=== PATIENT | male | born 1975 | race Caucasian/White ===

== ENCOUNTER 2020-02-22 14:45 | Inpatient (IN) | payer MEDICAID ==
[~2020-02-22] VITALS: Ht 172.7 cm; Wt 89.8 kg
--- NOTE | 2020-02-22 14:55 | NUR ---
PT BIB SELF C/O EPIGASTRIC PAIN SINCE LAST NIGHT, PT IS AAOX3, NOT IN RESPIRATORY DISTRESS, HOOKED TO GENERATION MANAGER, KEPT RESTED AND COMFORTABLE, WILL CONTINUE TO MONITOR.
--- NOTE | 2020-02-22 15:20 | NUR ---
IV LINE ESTABLISHED BLOOD DRAWN AND SENT TO LAB.
--- NOTE | 2020-02-22 15:25 | NUR ---
SISTER ROCKY LEFT #[phone]
[2020-02-22 15:29] LABS: BASOPHILS % (AUTO) 0.2 % (0.0-2.0); HEMATOCRIT 52 % (39-51); HEMOGLOBIN 17.5 g/dL (13.5-17.5); LYMPHOCYTES # (AUTO) 0.7 /CMM (0.8-4.8); LYMPHOCYTES % (AUTO) 5.5 % (20.0-44.0); MEAN CORPUSCULAR HGB CONC 34 g/dl (31.0-36.0); MEAN CORPUSCULAR VOLUME 89 fL (80-96); MONOCYTES # (AUTO) 0.4 /CMM (0.1-1.30); MONOCYTES % (AUTO) 3.3 % (2.0-12.0); NEUTROPHILS # (AUTO) 11.4 /CMM (1.8-8.9); PLATELET COUNT (AUTO) 302 /CMM (150-450); RED BLOOD CELL COUNT(AUTO) 5.82 MIL/uL (4.5-6.0); WHITE BLOOD COUNT (AUTO) 12.5 K/uL (4.3-11.0)
[2020-02-22] MEDS ORDERED: ONDANSETRON HCL/PF 4 MG/2 ML VIAL ONE (15:38)
[2020-02-22] MEDS ORDERED: MORPHINE SULFATE INJ 2 MG/ML DISP.SYRIN ONE (15:39)
[2020-02-22 15:41] LABS: CALCIUM, SERUM 9.6 mg/dL (8.5-10.1); CREATININE 1.1 mg/dL (0.6-1.3); POTASSIUM 4.1 mmol/L (3.5-5.1)
[2020-02-22] MEDS ORDERED: PANTOPRAZOLE 40 MG VIAL ONE (15:47)
[2020-02-22] MEDS ORDERED: KETOROLAC TROMETHAMINE 15 MG/ML VIAL ONE (15:47)
[2020-02-22 15:49] LABS: ALBUMIN 4.4 g/dL (3.4-5.0); BILIRUBIN,DIRECT 0.1 mg/dL (0.0-0.2); BILIRUBIN,TOTAL 0.5 mg/dL (0.2-1.0); TOTAL PROTEIN, SERUM 8.2 g/dL (6.4-8.2)
--- NOTE | 2020-02-22 15:50 | NUR ---
PT IS WHEELED TO CT SCAN VIA [facility].
[2020-02-22] MEDS ORDERED: ONDANSETRON HCL/PF - ER 4 MG/2 ML VIAL IV ONE ×2 (16:00→18:30)
[2020-02-22] MEDS ORDERED: MORPHINE SULFATE INJ 2 MG/ML DISP.SYRIN IV ONE (16:00)
[2020-02-22] MEDS ORDERED: KETOROLAC TROMETHAMINE INJ 30 MG/ML VIAL IV ONE (16:00)
[2020-02-22] MEDS ORDERED: PANTOPRAZOLE 40 MG VIAL IV ONE (16:00)
--- NOTE | 2020-02-22 16:25 | NUR ---
TECH AT BEDSIDE FOR US.
[2020-02-22] MEDS ORDERED: HYDROMORPHONE INJ 0.5 MG/0.5 ML SYRINGE IV ONE (18:00)
[2020-02-22] MEDS ORDERED: HYDROMORPHONE 1 MG/1 ML DISP.SYRIN ONE (18:00)
[2020-02-22] MEDS ORDERED: IV NS 0.9% 1,000 ML BAG IV ONE (18:30)
[2020-02-22] MEDS ORDERED: IV NS 0.9% 1,000 ML IV ONE (18:30)
--- NOTE | 2020-02-22 19:13 | NUR ---
REPORT GIVEN TO OZZIE HARRIS FOR TRISTEN.
--- NOTE | 2020-02-22 20:14 | NUR ---
REPORT GIVEN TO LUÍS HORNE FOR TRISTEN.
--- NOTE | 2020-02-22 20:15 | NUR ---
MS RN NOTES RECEIVED REPORT FROM OZZIE HARRIS; AWAITING PATIENT ARRIVAL TO UNIT
[2020-02-22 20:22] VITALS: BP 157/101
--- NOTE | 2020-02-22 20:22 | NUR ---
MS RN ADMITTING NOTES PATIENT ARRIVED ON UNIT VIA GURNEY, ACCOMPANIED BY OZZIE HARRIS; PATIENT A/OX4; BREATHING EVEN AND UNLABORED; TOLERATING ROOM AIR WELL; NO SOB NOTED; PATIENT REPORTED 9/10 ABDOMINAL PAIN AND IS REFUSING SKIN ASSESSMENT D/T PAIN; PER ER STAFF, SKIN INTACT; PATIENT REPORTED NO WOUNDS WELL; L AC #18 INTACT AND PATENT, FLUSHING WELL; NO S/S OF REDNESS OR INFILTRATION NOTED; PATIENT ORIENTED TO UNIT AND TO STAFF; SAFETY PRECAUTIONS IMPLEMENTED; BED LOCKED IN LOW POSITION; SIDE RAILS X2; CALL LIGHT WITHIN REACH; WILL CONT PLAN OF CARE AND CONT TO MONITOR; AWAITING MD ORDERS; WILL F/U
--- NOTE | 2020-02-22 20:37 | NUR ---
PATIENT TAKEN UPSTAIRS TO ADMITTED ROOM.
--- NOTE | 2020-02-22 20:45 | NUR ---
MS RN NOTES PATIENT COMPLAINT OF PAIN; RATES PAIN /; BP: 157/101 HR: 71 MORPHINE IV PUSH GIVEN PER MD ORDER; WILL CONT TO MONITOR AND ASSESS
[2020-02-22 21:00] VITALS: BP 157/101
[2020-02-22] MEDS ORDERED: MORPHINE SULFATE INJ 2 MG/ML DISP.SYRIN IV PRN (21:00)
[2020-02-22] MEDS ORDERED: ONDANSETRON HCL/PF 4 MG/2 ML VIAL IVP PRN (21:00)
[2020-02-22] MEDS ORDERED: Z GUARD REMEDY 2 OZ OINT TP PRN (21:00)
[2020-02-22] MEDS ORDERED: MAG HYDROX/AL HYDROX/SIMETH 30 ML UDC PO PRN (21:00)
[2020-02-22] MEDS ORDERED: MAGNESIUM HYDROXIDE 30 ML UDC PO PRN (21:00)
--- NOTE | 2020-02-22 21:05 | NUR ---
MS RN NOTES SPOKE WITH URGENT CARE NURSE PRACTITIONER FOAM DISPENSER JULIE; SHIRIN IS WORKING ON VERIFYING MEDICATION; AWAITING VERIFICATION PRIOR TO ADMINISTRATION OF MEDS
[2020-02-22] MEDS: IV NS 0.9% 1,000 ML IV SCH (21:37)
--- NOTE | 2020-02-22 22:46 | NUR ---
MS RN NOTES PATIENT REPORTED MORPHINE HELPED DROP PAIN LEVEL DOWN TO A 6-7 FROM 06/01; PATIENT NOW REPORTS PAIN OF 07/01; BP: 176/97 PULSE: 98 WILL RE-ASSESS; PATIENT REQUESTED NORCO AND ICE CHIPS; NORCO ADMINISTERED PER MD; WILL CONT TO MONITOR
[2020-02-22] MEDS: HYDROCODONE/APAP 5/325MG 1 EACH TABLET PO PRN (22:49)
--- NOTE | 2020-02-22 23:26 | NUR ---
MS RN NOTES PATIENT SLEEPING IN BED COMFORTABLY; EASILY AROUSABLE; REPORTS HE FEELS A BIT BETTER AND WOULD LIKE TO REST; PATIENT REPORTED HE WILL TRY TO MANAGE HIS PAIN; WILL CONT TO MONITOR;
--- NOTE | 2020-02-22 23:50 | NUR ---
MS RN NOTES PATIENT AWAKE AND IN DISCOMFORT; PATIENT REPORTING 9-10/10 PAIN SCALE; SPOKE WITH DR. GARCES REGARDING PATIENT; DR. GARCES WILL ASSESS; WILL CONT TO MONITOR
--- NOTE | 2020-02-23 | NUR ---
MS RN NOTES PER JENNIFER FULTON MORPHINE; DR. GARCES ORDERED DILAUDID 0.5MG IV PUSH; PATIENT CURRENTLY SLEEPING IN BED COMFORTABLY; WILL CONT TO MONITOR
[2020-02-23] MEDS ORDERED: HYDROMORPHONE INJ 0.5 MG/0.5 ML SYRINGE IV PRN (00:30)
[2020-02-23] MEDS: HYDROMORPHONE 1 MG/1 ML DISP.SYRIN IV PRN ×5 (01:56→22:53)
--- NOTE | 2020-02-23 01:56 | NUR ---
MS RN NOTES PATIENT REPORTING 10/10 ABDOMINAL PAIN; VITALS 163/94 P: 101; DILAUDID ADMINISTERED PER MD ORDER; WILL RE-ASSESS
--- NOTE | 2020-02-23 02:39 | NUR ---
MS RN NOTES PATIENT ASLEEP IN BED; RESTING IN BED COMFORTABLY; WAKES EASILY TO TOUCH; PATIENT REPORTED 6/10 PAIN; PATIENT AWARE PAIN MEDS NOT DUE AT THIS TIME; PATIENT WILL GO BACK TO BED; WILL CONT TO MONITOR
--- NOTE | 2020-02-23 04:27 | NUR ---
MS RN NOTES PATIENT RESTLESS AND IN PAIN; PATIENT REPORTS 10/10 ABDOMINAL PAIN; PATIENT SAYS THE PAIN GOES UP AND DOWN CONSTANTLY AND IT IS VERY UNCOMFORTABLE; WILL ADMINISTER NORCO PER MD ORDER; PATIENT VITALS: BP: 138/102, PULSE: 137, RR: 20; PATIENT REPORTS HE WANTS THE PAIN TO STOP AND TO BE ABLE TO JUST GO TO BED THE REST OF THE NIGHT; WILL CONT TO ASSESS AND MONITOR
[2020-02-23] MEDS: HYDROCODONE/APAP 5/325MG 1 EACH TABLET PO PRN ×2 (04:29→20:32)
--- NOTE | 2020-02-23 05:06 | NUR ---
MS RN NOTES PATIENT STILL IN DISTRESS, SAYS PAIN IS NOT GOING AWAY; PATIENT REPORTS HE IS BURPING A LOT; PATIENT INFORMED THAT BURPING IS GOOD, TO RELEASE TRAPPED AIR. PATIENT SAYS HE DOES NOT WANT TO MOVE IN BED D/T THE PAIN; HE ONLY CHANGES HIS POSITION IF ABLE TO TOLERATE PAIN; WILL INFORM DAY SHIFT REGARDING PAIN MANAGEMENT; MAALOX PRN GIVEN; PATIENT REQUESTED TO TRY SOMETHING TO HELP RELEASE MORE GAS; PAIN MANAGEMENT OF NOW, NOT ENTIRELY EFFECTIVE; WILL CONT TO MONITOR AND ASSESS
--- NOTE | 2020-02-23 06:04 | NUR ---
MS HORNE NOTES PATIENT REPORTING ABDOMINAL PAIN 07/01; 126/94, PULSE: 166; WILL ADMINISTER DILAUDID PER ORDER; WILL CONT TO MONITOR Addendum: 02/23/20 at 0642 by BRITTNEY JAMES RN WILL RECOMMEND TELE MONITORING FOR PATIENT; WILL ENDORSE ONCOMING SHIFT
--- NOTE | 2020-02-23 06:59 | NUR ---
MS RN CLOSING NOTES PATIENT RESTING IN BED, A/OX4; BREATHING EVEN AND UNLABORED; PATIENT TOLERATING ROOM AIR WELL; NO SOB NOTED; L AC #18 INTACT AND PATENT, INFUSING NS @ 100ML/HR; PATIENT TOLERATING IVF WELL; PATIENT STILL IN PAIN; WILL INFORM ONCOMING SHIFT REGARDING PAIN MANAGEMENT; ALL NEEDS RENDERED; SAFETY PRECAUTIONS IMPLEMENTED; BED LOCKED IN LOW POSITION; SIDE RAILS X2; CALL LIGHT WITHIN REACH; WILL ENDORSE TRISTEN TO ONCOMING SHIFT
[2020-02-23 07:03] LABS: BASOPHILS % (AUTO) 0.2 % (0.0-2.0); HEMATOCRIT 50 % (39-51); HEMOGLOBIN 17.2 g/dL (13.5-17.5); LYMPHOCYTES # (AUTO) 0.7 /CMM (0.8-4.8); LYMPHOCYTES % (AUTO) 5.4 % (20.0-44.0); MEAN CORPUSCULAR HGB CONC 35 g/dl (31.0-36.0); MEAN CORPUSCULAR VOLUME 88 fL (80-96); MONOCYTES # (AUTO) 0.9 /CMM (0.1-1.30); MONOCYTES % (AUTO) 7.7 % (2.0-12.0); NEUTROPHILS # (AUTO) 10.5 /CMM (1.8-8.9); NEUTROPHILS % (AUTO) 86.7 % (43.0-81.0); PLATELET COUNT (AUTO) 291 /CMM (150-450); RED BLOOD CELL COUNT(AUTO) 5.64 MIL/uL (4.5-6.0); WHITE BLOOD COUNT (AUTO) 12.2 K/uL (4.3-11.0)
[2020-02-23] MEDS: IV NS 0.9% 1,000 ML IV SCH (07:21)
--- NOTE | 2020-02-23 07:30 | NUR ---
MS/RN NOTES Patient resting in bed, A&O x 4. No SOB noted, breathing even and non-labored. No cardiac distress noted. Patient reports no pain/discomfort at this time. IV access noted on the left AC, 18 gauge infusing NS at 100ml/hr. Sensations from all peripheral extremities intact. Fall precautions maintained. Will continue with current medical management.
[2020-02-23 07:31] LABS: ALBUMIN 3.6 g/dL (3.4-5.0); BILIRUBIN,DIRECT 0.1 mg/dL (0.0-0.2); BILIRUBIN,TOTAL 0.6 mg/dL (0.2-1.0); CALCIUM, SERUM 8.5 mg/dL (8.5-10.1); CREATININE 0.9 mg/dL (0.6-1.3); MAGNESIUM 1.8 mg/dL (1.8-2.4); PHOSPHORUS 3.1 mg/dL (2.5-4.9); POTASSIUM 3.8 mmol/L (3.5-5.1); TOTAL PROTEIN, SERUM 7.2 g/dL (6.4-8.2)
[2020-02-23] MEDS: PANTOPRAZOLE 40 MG VIAL IV SCH (08:06)
[2020-02-23 08:47] VITALS: BP 146/106
--- NOTE | 2020-02-23 11:00 | NUR ---
MS/RN NOTES Spoke with daughter, Eneida [phone], about patient's history. She reveals that patient never goes to the doctor, is non-compliant, and has hx of heavy alcohol use. She states that patient drinks liquor and beer every day.
[2020-02-23 16:53] VITALS: BP 139/96
--- NOTE | 2020-02-23 18:14 | NUR ---
312-1 MS/RN CLOSING NOTES Patient resting in bed, A&O x 4. VSS, afebrile, no SOB noted. Patient reports pain and discomfort on the abdomen, but last dilaudid was given at 1407. Breathing even and non-labored. No cardiac distress noted. IV access noted on the left AC, 18 gauge infusing NS at 100ml/hr. Sensations from all peripheral extremities intact. Fall precautions maintained. Will endorse to the oncoming scratch brusher nurse.
--- NOTE | 2020-02-23 19:30 | NUR ---
MS RN OPENING NOTES PATIENT SLEEPING IN BED, EASY TO AWAKEN. A/OX4. STABLE ON RA. NO S/S OF ACUTE RESPIRATORY DISTRESS; BREATHING IS EVEN AND UNLABORED. PATIENT C/O OF ABDOMINAL PAIN; PER DAY SHIFT RECEIVED PRN DILAUDID AT 1845. IV PRESENT ON LEFT AC, SIZE 18, INTACT & PATENT WITH NS RUNNING AT 100ML/HR. SAFETY MEASURES IN PLACE AND PATIENT'S NEEDS MET. BED LOCKED, SIDE RAILS X2, CALL LIGHT WITHIN REACH. WILL CONTINUE TO MONITOR.
[2020-02-23 20:00] VITALS: BP 139/89
[2020-02-23] MEDS: IV NS 0.9% 1,000 ML IV PRN (23:30)
[2020-02-24] MEDS: HYDROCODONE/APAP 5/325MG 1 EACH TABLET PO PRN ×6 (01:21→23:49)
[2020-02-24] MEDS: HYDROMORPHONE 1 MG/1 ML DISP.SYRIN IV PRN ×5 (03:14→21:02)
[2020-02-24 06:54] LABS: BASOPHILS % (AUTO) 0.3 % (0.0-2.0); HEMATOCRIT 48 % (39-51); HEMOGLOBIN 16.3 g/dL (13.5-17.5); LYMPHOCYTES # (AUTO) 1.3 /CMM (0.8-4.8); LYMPHOCYTES % (AUTO) 10.3 % (20.0-44.0); MEAN CORPUSCULAR HGB CONC 34 g/dl (31.0-36.0); MEAN CORPUSCULAR VOLUME 90 fL (80-96); MONOCYTES # (AUTO) 1.1 /CMM (0.1-1.30); MONOCYTES % (AUTO) 8.4 % (2.0-12.0); NEUTROPHILS # (AUTO) 10.4 /CMM (1.8-8.9); PLATELET COUNT (AUTO) 237 /CMM (150-450); RED BLOOD CELL COUNT(AUTO) 5.35 MIL/uL (4.5-6.0); WHITE BLOOD COUNT (AUTO) 12.9 K/uL (4.3-11.0)
[2020-02-24 07:07] LABS: ALBUMIN 2.9 g/dL (3.4-5.0); BILIRUBIN,DIRECT 0.2 mg/dL (0.0-0.2); BILIRUBIN,TOTAL 0.9 mg/dL (0.2-1.0); CALCIUM, SERUM 8.1 mg/dL (8.5-10.1); MAGNESIUM 1.9 mg/dL (1.8-2.4); POTASSIUM 3.8 mmol/L (3.5-5.1); TOTAL PROTEIN, SERUM 6.4 g/dL (6.4-8.2)
--- NOTE | 2020-02-24 07:30 | NUR ---
MS/RN NOTES Patient resting in bed, A&O x 4. Patient reports no pain/discomfort at this time. Requested ice packs for abdominal pain relief. No SOB noted, breathing even and non-labored. No cardiac distress noted. IV access noted on the left AC, 18 gauge infusing NS at 100ml/hr. Sensations from all peripheral extremities intact. Fall precautions maintained. Will continue with current medical management.
--- NOTE | 2020-02-24 07:46 | NUR ---
MS RN CLOSING NOTES PATIENT SLEEPING, EASY TO AWAKEN. A/OX4. STABLE ON RA. NO S/S OF ACUTE RESPIRATORY DISTRESS; BREATHING IS EVEN AND UNLABORED. NO C/O PAIN AT THIS TIME. IV PRESENT ON LEFT AC, SIZE 18, INTACT & PATENT WITH NS RUNNING AT 100ML/HR. SAFETY MEASURES IN PLACE AND PATIENT'S NEEDS MET. BED LOCKED, SIDE RAILS X2, CALL LIGHT WITHIN REACH. WILL ENDORSE TO DAY SHIFT NURSE PLAN OF CARE.
[2020-02-24 08:00] VITALS: BP 146/89
[2020-02-24] MEDS: PANTOPRAZOLE 40 MG VIAL IV SCH (08:03)
[2020-02-24] MEDS: IV NS 0.9% 1,000 ML IV PRN ×2 (12:03→22:09)
[2020-02-24] MEDS ORDERED: K PHOS NEUTRAL 250 MG TABLET PO ONE (13:30)
[2020-02-24 16:00] VITALS: BP 158/96
--- NOTE | 2020-02-24 18:51 | NUR ---
MS/RN CLOSING NOTES Patient resting in bed, A&O x 4. VSS, afebrile, no SOB noted. Patient reports pain and discomfort on the abdomen, but last dilaudid was given at 1703. Breathing even and non-labored. No cardiac distress noted. IV access noted on the left AC, 18 gauge infusing NS at 100ml/hr. Sensations from all peripheral extremities intact. Fall precautions maintained. Will endorse to the oncoming weight shifter nurse.
[2020-02-24 19:30] VITALS: BP 149/99
--- NOTE | 2020-02-24 19:30 | NUR ---
MS RN NOTES PATIENT IN BED, RESTING, ALERT AND ORIENTED X 4. BREATHING EVEN AND UNLABORED ON ROOM AIR. SHOWS NO SIGNS OF ACUTE RESPIRATORY DISTRESS, NO ACUTE PAIN. IV ON LAC 18 G RUNNING NS AT 100ML/HR. SHOWS NO SIGNS OF INFILTRATION, NO REDNESS. SAFETY PRECAUTIONS IN PLACE. BED IN LOWEST POSITION, LOCKED, AND CALL LIGHT KEPT WITHIN REACH. WILL CONTINUE TO MONITOR.
--- NOTE | 2020-02-24 19:49 | NUR ---
MS RN NOTES PATIENT COMPLAINING OF PAIN 07/01. GIVEN NORCO PRN AT 1949. WILL CONTINUE TO MONITOR.
[2020-02-24 20:00] VITALS: BP 149/99
--- NOTE | 2020-02-24 21:02 | NUR ---
MS RN NOTES PATIENT COMPLAINING OF PAIN 10/10. GIVEN PRN DILAUDID AT 2102. WILL CONTINUE TO MONITOR.
[2020-02-24] MEDS: ACETAMINOPHEN 325 MG TABLET PO PRN (22:22)
--- NOTE | 2020-02-24 22:22 | NUR ---
MS RN NOTES PATIENT RUNNING LOW GRADE FEVER 99.8. ACCORDING TO PHARMACY IT WILL BE SAFE TO GIVE TYLENOL 650MG ALONG WITH ALL THE PRIOR DOSES OF NORCO THAT WAS GIVEN. GIVEN NORCO 2222. WILL CONTINUE TO MONITOR AND STARTED COOLING MEASURES.
--- NOTE | 2020-02-24 23:49 | NUR ---
MS RN NOTES PATIENT COMPLAINING OF PAIN 05/01. GIVEN NORCO PRN AT 2349. WILL CONTINUE TO MONITOR.
[2020-02-25] MEDS: HYDROMORPHONE 1 MG/1 ML DISP.SYRIN IV PRN ×5 (01:03→20:04)
--- NOTE | 2020-02-25 01:03 | NUR ---
MS RN NOTES PATIENT COMPLAINING OF PAIN 06/01. GIVEN PRN DILAUDID AT 0103. WILL CONTINUE TO MONITOR.
--- NOTE | 2020-02-25 05:56 | NUR ---
MS RN NOTES PATIENT COMPLAINING OF PAIN 06/01. GIVEN PRN DILAUDID AT 0556. WILL CONTINUE TO MONITOR.
--- NOTE | 2020-02-25 06:40 | NUR ---
MS RN NOTES PATIENT IN BED, SLEEPING , ALERT AND ORIENTED X 4. BREATHING EVEN AND UNLABORED ON ROOM AIR. SHOWS NO SIGNS OF ACUTE RESPIRATORY DISTRESS, NO ACUTE PAIN. IV ON LAC 18 G RUNNING NS AT 100ML/HR. SHOWS NO SIGNS OF INFILTRATION, NO REDNESS. ALL DUE MEDICATIONS GIVEN. SAFETY PRECAUTIONS IN PLACE. BED IN LOWEST POSITION, LOCKED, AND CALL LIGHT KEPT WITHIN REACH. WILL ENDORSE TO ONCOMING NURSE.
[2020-02-25 08:00] VITALS: BP 159/89
[2020-02-25 08:16] LABS: BASOPHILS % (AUTO) 0.2 % (0.0-2.0); EOSINOPHILS % (AUTO) 0.1 % (0.0-6.0); HEMATOCRIT 41 % (39-51); HEMOGLOBIN 13.7 g/dL (13.5-17.5); LYMPHOCYTES # (AUTO) 0.8 /CMM (0.8-4.8); LYMPHOCYTES % (AUTO) 7.2 % (20.0-44.0); MEAN CORPUSCULAR HGB CONC 34 g/dl (31.0-36.0); MEAN CORPUSCULAR VOLUME 89 fL (80-96); MONOCYTES # (AUTO) 1.2 /CMM (0.1-1.30); NEUTROPHILS # (AUTO) 8.7 /CMM (1.8-8.9); NEUTROPHILS % (AUTO) 81.5 % (43.0-81.0); PLATELET COUNT (AUTO) 214 /CMM (150-450); RED BLOOD CELL COUNT(AUTO) 4.55 MIL/uL (4.5-6.0); WHITE BLOOD COUNT (AUTO) 10.6 K/uL (4.3-11.0)
[2020-02-25] MEDS: HYDROCODONE/APAP 5/325MG 1 EACH TABLET PO PRN ×3 (08:19→21:41)
[2020-02-25] MEDS: PANTOPRAZOLE 40 MG VIAL IV SCH (08:19)
[2020-02-25 08:52] LABS: CALCIUM, SERUM 8.2 mg/dL (8.5-10.1); CREATININE 0.7 mg/dL (0.6-1.3); PHOSPHORUS 1.6 mg/dL (2.5-4.9); POTASSIUM 3.5 mmol/L (3.5-5.1)
[2020-02-25] MEDS ORDERED: K PHOS NEUTRAL 250 MG TABLET PO ONE (14:00)
[2020-02-25 16:00] VITALS: BP 151/98
--- NOTE | 2020-02-25 18:00 | NUR ---
MED. X4 FOR PAIN,X2 WITH NORCO AND X2 WITH DILAUDID.IV INFUSING. DR. VALENCIA IN AND WANTED TO START ON REG. DIET.PT. SHORTLY AFTER HAD ABD. PAIN SO PREFERS LIQ. AT THIS TIME.ADDITIONALLY GIVEN NEUTRAPHOS FOR ABN. LABS.
--- NOTE | 2020-02-25 19:20 | NUR ---
MS RN OPENING NOTES PATIENT IN BED AWAKE, ALERT AND ORIENTED X4. BREATHING EVEN AND UNLABORED ON ROOM AIR. NO APPARENT DISTRESS NOTED, NO PAIN OR DISCOMFORT AT THIS TIME. IV ON LAC 18 G RUNNING NS AT 100ML/HR. SHOWS NO SIGNS OF INFILTRATION, NO REDNESS. SAFETY PRECAUTIONS IN PLACE. BED IN LOWEST POSITION, LOCKED, AND CALL LIGHT KEPT WITHIN REACH.
[2020-02-25 20:00] VITALS: BP 145/70
--- NOTE | 2020-02-25 20:12 | NUR ---
MS RN NOTES PATIENT COMPLAINING OF ABDOMINAL PAIN ON A PAIN SCALE OF 9/10. ADMINISTERED PRN DILAUDID. WILL CONTINUE TO MONITOR.
[2020-02-25 20:18] VITALS: BP 145/70
--- NOTE | 2020-02-25 21:42 | NUR ---
MS RN NOTES PATIENT COMPLAINING OF ABDOMINAL PAIN ON A PAIN SCALE OF 7/10. ADMINISTERED PRN NORCO. BP 147/99. WILL CONTINUE TO MONITOR.
[2020-02-25] MEDS: ACETAMINOPHEN 325 MG TABLET PO PRN (22:57)
--- NOTE | 2020-02-25 22:57 | NUR ---
TEMP 100.3 TEMP NOTED AT 100.3. ADMINISTERED TYLENOL 650MG PO ORDERED. WILL REASSESS IN 1 HR.
--- NOTE | 2020-02-26 00:01 | NUR ---
MS RN NOTE: RECHECKED TEM. 97.9
[2020-02-26] MEDS: HYDROMORPHONE 1 MG/1 ML DISP.SYRIN IV PRN ×5 (00:52→22:20)
--- NOTE | 2020-02-26 00:57 | NUR ---
MS HOREN NOTES PATIENT COMPLAINING OF ABDOMINAL PAIN ON A PAIN SCALE OF 10/10. ADMINISTERED PRN DILAUDID. WILL CONTINUE TO MONITOR. Addendum: 02/26/20 at 0059 by VEDA HAAS RN V/S TAKEN AND RECORDED BP 137/89, P89, R19
--- NOTE | 2020-02-26 06:05 | NUR ---
MS RN NOTES PATIENT COMPLAINING OF ABDOMINAL PAIN ON A PAIN SCALE OF 10/10. BP 144/95, AK-106 ADMINISTERED PRN DILAUDID. WILL CONTINUE TO MONITOR.
--- NOTE | 2020-02-26 06:31 | NUR ---
MS RN CLOSING NOTES PATIENT AWAKE, ALERT AND ORIENTED X4, STABLE ON RA. NO S/S OF ACUTE RESPIRATORY DISTRESS; BREATHING IS EVEN AND UNLABORED. IV PRESENT ON LEFT AC, SIZE 22, INTACT & PATENT. SAFETY MEASURES IN PLACE AND PATIENT'S NEEDS MET. BED LOCKED, SIDE RAILS X2, CALL LIGHT WITHIN REACH. WILL ENDORSE TO DAY SHIFT NURSE PLAN OF CARE.
[2020-02-26 06:58] LABS: BASOPHILS % (AUTO) 0.1 % (0.0-2.0); EOSINOPHILS % (AUTO) 0.5 % (0.0-6.0); HEMATOCRIT 40 % (39-51); HEMOGLOBIN 13.6 g/dL (13.5-17.5); LYMPHOCYTES % (AUTO) 10.1 % (20.0-44.0); MEAN CORPUSCULAR HGB CONC 34 g/dl (31.0-36.0); MEAN CORPUSCULAR VOLUME 89 fL (80-96); MONOCYTES # (AUTO) 1.3 /CMM (0.1-1.30); MONOCYTES % (AUTO) 13.5 % (2.0-12.0); NEUTROPHILS # (AUTO) 7.3 /CMM (1.8-8.9); NEUTROPHILS % (AUTO) 75.8 % (43.0-81.0); PLATELET COUNT (AUTO) 281 /CMM (150-450); RED BLOOD CELL COUNT(AUTO) 4.53 MIL/uL (4.5-6.0); WHITE BLOOD COUNT (AUTO) 9.6 K/uL (4.3-11.0)
--- NOTE | 2020-02-26 07:15 | NUR ---
MS RN NOTES RECEIVED PT IN BED, ASLEEP, EASILY AROUSED, A/OX3-4. PT TOLERATING RA, WITH NO ACUTE RESPIRATORY DISTRESS NOTED. PT DENIES ANY PAIN OR DISCOMFORT AT THIS TIME. PT DENIES ANY CONCERNS OR QUESTIONS WELL. PIV TO RAC G22, FLUSHED WITH NS, INTACT AND OPERATIONAL. PT KEPT COMFORTABLE. CALL LIGHT KEPT WITHIN REACH. PT'S BED IN LOWEST, LOCKED POSITION WITH SRX3. WILL CONTINUE PLAN OF CARE.
[2020-02-26 08:13] VITALS: BP 133/73
[2020-02-26] MEDS: PANTOPRAZOLE 40 MG VIAL IV SCH (08:40)
[2020-02-26] MEDS ORDERED: ZOSYN IVPB 3.375 G in IV D5W 50ml IV ONE (11:00)
[2020-02-26] MEDS ORDERED: K PHOS NEUTRAL 250 MG TABLET PO ONE (11:30)
[2020-02-26] MEDS: HYDROCODONE/APAP 5/325MG 1 EACH TABLET PO PRN ×2 (11:31→15:56)
--- NOTE | 2020-02-26 12:30 | NUR ---
MS RN NOTES PT REFUSED THE COVID TEST AND MADE AWARE OF /OSCAR. RESPONDED HOLDING DISCHARGE, NOT SAFE TO GO AND IS RULING OUT PT BEING SEPTIC DUE TO SPIKE OF FEVER LAST NIGHT THAT HE IS NOT AWARE OF. PT MADE AWARE. PT AGREED TO DO THE TEST TODAY BUT STILL CONCERNED OF BEING DISCHARGE REGARDLESS OF THE RESULT TODAY. MADE AWARE, AWAITING FOR RESPONSE.
--- NOTE | 2020-02-26 12:57 | NUR ---
MS RN NOTES COVED SWAB TEST DROPPED/SENT TO LAB. AWAITING FOR RESULTS.
--- NOTE | 2020-02-26 12:58 | NUR ---
MS RN NOTES PT INITIATED TO ISOLATE. DROPLET PRECAUTIONS, R/O COVID. WILL CONTINUE TO MONITOR.
[2020-02-26 16:00] VITALS: BP 135/81
--- NOTE | 2020-02-26 18:18 | NUR ---
MS RN NOTES PT REQUESTED FOR DILAUDID 1MG HOT FOR 9/10 PAIN IN THE ABDOMEN. MEDICINE PRN GIVEN ORDERED. WILL CONTINUE TO MONITOR.
--- NOTE | 2020-02-26 18:37 | NUR ---
MS RN NOTES PT REMAINS IN BED,INTERMITTENTLY DOZING OFF, EASILY AROUSED, A/OX3-4. PT TOLERATING RA, WITH NO ACUTE RESPIRATORY DISTRESS NOTED. PT STILL IN PAIN BUT TOLERABLE, JUST HAD PRN PAIN MEDICINE WELL. PIV TO RAC G22, FLUSHED WITH NS, INTACT AND OPERATIONAL. ALL NEEDS AND CARE ATTENDED. PT KEPT COMFORTABLE. CALL LIGHT KEPT WITHIN REACH. PT'S BED IN LOWEST, LOCKED POSITION WITH SRX3. WILL ENDORSE TO INCOMING NIGHT NURSE FOR TRISTEN.
[2020-02-26 20:00] VITALS: BP 155/85
--- NOTE | 2020-02-26 20:00 | NUR ---
RN NOTES ALERT AND ORIENTED X4, ROOM AIR, IRRITABLE, EPIGASTRIC PAIN, DENIES N/V, PAIN MANAGED BY DILAUDID 1 MG Q4HRS, DENIES COUGHING, MAINTAINS DROPLET PRECAUTION
[2020-02-26] MEDS: PIPERACILLIN /TAZOBACTAM 3.375 G in IV D5W 100 ML IV SCH (20:27)
[2020-02-26] MEDS: IV NS 0.9% 1,000 ML IV PRN (20:41)
[2020-02-26 22:00] VITALS: BP 155/85
[2020-02-27] MEDS: HYDROMORPHONE 1 MG/1 ML DISP.SYRIN IV PRN ×2 (04:16→09:55)
[2020-02-27] MEDS: PIPERACILLIN /TAZOBACTAM 3.375 G in IV D5W 100 ML IV SCH (04:16)
--- NOTE | 2020-02-27 06:39 | NUR ---
RN NOTES ALERT AND ORIENTED X4, ROOM AIR, DENIES COUGHING, VSS, AFEBRILE, ZOSYN IV, AWAITING COVID TEST, CONTINUE DROPLET PRECAUTION
[2020-02-27 07:24] LABS: BASOPHILS % (AUTO) 0.2 % (0.0-2.0); EOSINOPHILS % (AUTO) 0.5 % (0.0-6.0); HEMATOCRIT 37 % (39-51); HEMOGLOBIN 12.7 g/dL (13.5-17.5); LYMPHOCYTES # (AUTO) 0.7 /CMM (0.8-4.8); MEAN CORPUSCULAR HGB CONC 34 g/dl (31.0-36.0); MEAN CORPUSCULAR VOLUME 89 fL (80-96); MONOCYTES # (AUTO) 1.3 /CMM (0.1-1.30); MONOCYTES % (AUTO) 14.1 % (2.0-12.0); NEUTROPHILS % (AUTO) 77.2 % (43.0-81.0); PLATELET COUNT (AUTO) 308 /CMM (150-450); RED BLOOD CELL COUNT(AUTO) 4.21 MIL/uL (4.5-6.0); WHITE BLOOD COUNT (AUTO) 9.1 K/uL (4.3-11.0)
[2020-02-27] MEDS: PANTOPRAZOLE 40 MG VIAL IV SCH (09:00)
[2020-02-27] MEDS ORDERED: HYDR-4384 PO (09:31)
--- NOTE | 2020-02-27 09:50 | NUR ---
MS RN NOTES REPORT GIVEN TO OZZIE/HERBERT FOR TRISTEN.
--- NOTE | 2020-02-27 13:30 | NUR ---
Patient cleared for d/c to home by . Patient awake alert and oriented x3, ambulatory , gait is steady. Breathing unlabored and even on room air , VS are stable and within base line . Patient denies abdominal pain and any other discomfort. Patient received d/c instructions and education , patient was told to be on self isolation until COVID test came back. Patient verbalized understanding and will call on Friday for test resoles. D/c instructions and valuable form sighed by patient. IV line removed , ID wrist band removed. Patient safely transferred to [facility] via wheelchair accompanied by BROWN Wright.
== END 2020-02-27 13:30 | disposition home or self-care (01) | DRG 282 ==
LOC: ER 14:45 → MED 20:02
PROVIDERS: ADMIT Internal Medicine; ATTEND Internal Medicine
DX: K85.20 Alcohol induced acute pancreatitis without necrosis or infection (principal); R65.10 Systemic inflammatory response syndrome (SIRS) of non-infectious origin without acute organ dysfunction; K70.10 Alcoholic hepatitis without ascites; K76.0 Fatty (change of) liver, not elsewhere classified; F10.10 Alcohol abuse, uncomplicated; K40.90 Unilateral inguinal hernia, without obstruction or gangrene, not specified as recurrent; Y90.0 Blood alcohol level of less than 20 mg/100 ml
CPT/HCPCS: 36415; 76705-TC; 80048-TC; 80076-TC; 83690-TC; 83735-TC; 84100-TC; 85025-TC; 87040-TC; 87081-TC; C9113; G0378; G0480; J1170; J1885; J2270; J2405; J2543; J7030; J7050; J7060; U0003-CS